=== PATIENT | male | born 1990 | race Hispanic/Latino ===

== ENCOUNTER 2018-03-04 20:47 | Emergency (ER) | payer SELFPAY ==
[2018-03-04] MEDS ORDERED: Acetaminophen 500 MG TAB ONE (20:59)
[2018-03-04] MEDS ORDERED: Ibuprofen 800 MG TAB ONE (21:36)
--- NOTE | 2018-03-04 22:10 | RAD ---
RADIOGRAPH CHEST 1 VIEW: HISTORY: A 28-year-old male with fever and pneumonia. FINDINGS: The visualized lung rudd are clear. The cardiomediastinal silhouette and hilar shadows are normal. The lateral costophrenic angles are sharp. The osseous structures appear normal. There is no pneu mothorax. IMPRESSION: Negative. rand [] POS: [facility]
== END 2018-03-04 21:49 | disposition home or self-care (01) ==
LOC: ERS 20:47
DX: J10.1 Influenza due to other identified influenza virus with other respiratory manifestations (principal)
CPT/HCPCS: 71045; 87804

== ENCOUNTER 2018-03-06 16:13 | Emergency (ER) | payer SELFPAY ==
[2018-03-06] MEDS ORDERED: Acetaminophen 500 MG TAB ONE ×2 (16:52)
== END 2018-03-06 18:28 | disposition home or self-care (01) ==
LOC: ERS 16:13
DX: J11.1 Influenza due to unidentified influenza virus with other respiratory manifestations (principal)
CPT/HCPCS: 87081; 87430; 99283

== ENCOUNTER 2018-07-13 15:21 | Emergency (ER) | payer SELFPAY ==
[2018-07-13] MEDS ORDERED: Ketorolac Tromethamine 30 MG/ML VIAL ONE (15:47)
[2018-07-13 16:12] LABS: #Basophils 0.1 thou/uL (0.0-0.2); #Eosinphils 0.2 thou/uL (0.0-0.7); #Lymphocytes 2.4 thou/uL (1.20-3.40); #Neutrophils 8.8 thou/uL (1.40-6.50); %Basophils 0.7 % (0.0-1.0); %Eosinophils 1.3 % (0.0-10.0); %Lymphocytes 19.3 % (21.0-51.0); %Monocytes 7.8 % (0.0-10.0); %Neutrophils 70.9 % (42.0-75.0); Hemoglobin 15.4 g/dL (14.0-18.0); Mean Corpuscular HGB CONC 34.3 g/dL (32.0-36.0); Mean Corpuscular Hemoglobin 31.1 pg (27.0-31.0); Mean Corpuscular Volume 90.6 fL (78.0-98.0); Mean Platelet Volume 6.7 fL (7.4-10.4); Platelet Count 333 thou/uL (130-400); RBC Distribution Width 12.6 % (11.5-14.5); Red Blood Cell (RBC) Count 4.95 mill/uL (4.70-6.10); White Blood Cell (WBC) Count 12.4 thou/uL (4.8-10.8)
[2018-07-13 16:40] LABS: ALT (SGPT) 75 U/L (8-55); AST (SGOT) 31 U/L (5-34); Albumin 4.7 g/dL (3.5-5.0); Alkaline Phosphatase 71 U/L (40-150); Anion Gap 16 mmol/L (10-20); BUN (Urea Nitrogen) 19 mg/dL (8.9-20.6); Bilirubin, Total 0.4 mg/dL (0.2-1.2); Calc. Creatinine Clearance 0 mL/min (70-130); Calcium 10.2 mg/dL (7.8-10.44); Carbon Dioxide 26 mmol/L (22-29); Chloride 105 mmol/L (98-107); Estimated GFR-MDRD 75; Globulin 2.9 g/dL (2.4-3.5); Glucose 89 mg/dL (70-105); Potassium 3.9 mmol/L (3.5-5.1); Protein, Total 7.6 g/dL (6.0-8.3); Sodium 143 mmol/L (136-145)
--- NOTE | 2018-07-13 16:56 | RAD ---
2 views chest. HISTORY: Shortness of breath. AP and lateral views chest obtained. The lungs are well aerated. No evidence of active intrathoracic disease seen. No evidence of effusion s, pneumonia or pneumothorax seen. IMPRESSION: Unremarkable 2 views chest.
== END 2018-07-13 17:35 | disposition home or self-care (01) ==
LOC: ERS 15:21
DX: M54.6 Pain in thoracic spine (principal)
CPT/HCPCS: 36415; 71046; 80053; 84484; 85025; 85379; 93005; 96374; J1885

== ENCOUNTER 2022-05-13 10:24 | Emergency (ER) | payer SELFPAY ==
[2022-05-13] MEDS ORDERED: Lidocaine 4% Cream 5 GM TUBE w/ Tegaderm ONE (10:57)
[2022-05-13] MEDS ORDERED: Lidocaine 1% w/Epinephrine 1:100K 20 ML VIAL ONE (10:58)
[2022-05-13] MEDS ORDERED: Ketorolac Tromethamine 30 MG/ML VIAL ONE (11:06)
[2022-05-13] MEDS ORDERED: Ondansetron ODT 4 MG TAB ONE (12:19)
== END 2022-05-13 12:38 | disposition home or self-care (01) ==
LOC: ERS 10:24
DX: L02.11 Cutaneous abscess of neck (principal)
CPT/HCPCS: 10060; 96372; J1885; Q0162